=== PATIENT | male | born 1955 | race Caucasian/White ===

== ENCOUNTER 2018-01-17 13:00 | Inpatient (IN) | payer MEDICARE ==
[2018-01-17 16:27] VITALS: BMI 29.7
[2018-01-25] MEDS ORDERED: CEFAZOLIN/Water 2 GM/20 ML SYRINGE ONE (11:18)
[2018-01-25] MEDS ORDERED: Bupivacaine HCl 0.5%/Epinephrine 1:200,000/PF 30 ml Vial ONE (12:11)
[2018-01-25] MEDS ORDERED: Thrombin 5000 UNITS/5 ML VIAL ONE (12:11)
[2018-01-25] MEDS ORDERED: Bacitracin Zinc Ointment 30 gm TUBE ONE (12:11)
[2018-01-25] MEDS ORDERED: Sodium Chloride 0.9% 10 ML ONE (12:11)
[2018-01-25] MEDS ORDERED: Phenylephrine HCL 10 MG/ML VIAL ONE (12:21)
[2018-01-25] MEDS ORDERED: Nitroglycerin 50 MG/250 ML BOT 0 ML ONE (12:21)
[2018-01-25] MEDS ORDERED: Albumin 5% 0 ML ONE (12:21)
[2018-01-25] MEDS ORDERED: Fentanyl 250 MCG/5 ML VIAL ONE (12:24)
[2018-01-25] MEDS ORDERED: Acetaminophen/Codeine 30-300mg Tablet PO PRN ×2 (12:56)
[2018-01-25] MEDS ORDERED: Acetaminophen 325 MG TAB PO PRN (12:56)
[2018-01-25] MEDS ORDERED: traMADol HCl 50 MG TAB PO PRN (12:56)
[2018-01-25] MEDS ORDERED: Ondansetron HCl/PF 4 MG/2 ML Vial IVP PRN (12:56)
[2018-01-25] MEDS ORDERED: Promethazine HCl 25 MG/ML VIAL IM PRN (12:56)
[2018-01-25] MEDS ORDERED: tiZANidine HCl 4 MG TAB PO PRN (12:56)
[2018-01-25] MEDS ORDERED: Promethazine HCl 12.5 MG SUPP PR PRN (12:56)
[2018-01-25] MEDS ORDERED: Promethazine 25 MG TAB PO PRN (12:56)
[2018-01-25] MEDS ORDERED: Bisacodyl 10 MG SUPP PR PRN (12:56)
[2018-01-25] MEDS ORDERED: Morphine 2 MG/ML SYRINGE SLOW IVP PRN (12:56)
--- NOTE | 2018-01-25 15:40 | HP ---
DATE OF ADMISSION: 01/25/2018 REASON FOR ADMISSION: Lumbar stenosis. HISTORY OF PRESENT ILLNESS: Mr. Ledbetter is a 62-year-old gentleman referred to us by Dr. Sykes for jannette luation of left low back and radiating leg pain and some right lower extremity symptoms as well. The se are worse with standing and for relief he has to sit down or bend forward. He has been evaluated with MR imaging in our office showing lateral recess stenosis at L3-L4 and L4-L5. There is foraminal disease as well. He has been to our colleagues in pain management and physical therapy and although those interventions are provided temporary relief. The pain is worsening over time rather than gett ing better. For this reason, he was brought to the hospital today for decompressive laminectomy, med ial facetectomy, and foraminotomy. PAST MEDICAL HISTORY: Diabetes mellitus, end-stage renal disease, hypertension. PAST SURGICAL HISTORY: Kidney transplant in 2012. MEDICATIONS: Pantoprazole, prednisone, Lantus insulin, tacrolimus, sodium bicarbonate, ezetimibe, ca lcitriol, Plavix (held), amlodipine, baby aspirin (held), pravastatin, Uloric, and furosemide. ALLERGIES: No known drug allergies. SOCIAL HISTORY: Mr. Ledbetter continues to smoke, unfortunate a pack per day. He is retired. He is mar ried, has two children. FAMILY HISTORY: Noncontributory. REVIEW OF SYSTEMS: Other symptoms are negative in our 10-point review of symptoms. PHYSICAL EXAMINATION: GENERAL: Mr. Ledbetter is a 62-year-old gentleman in no acute distress. NEUROLOGIC: Examination cranial nerves are all intact. Cerebellar exam does not show any deficits i n alternating rapid motions or truncal ataxia. His motor exam does not reveal any significant weakne ss. Specifically, the strength is normal in the iliopsoas, quadriceps, hamstrings, anterior tibia, E HL, and gastrocnemius. Sensory exam shows mild deficits in left L4-L5 dermatomes. Reflexes are hypo active throughout. There is no clonus. IMAGING: Findings are reviewed imaging as above. Flexion, extension views do not show significant t ranslational instability in the lumbar spine. IMPRESSION: Lumbar stenosis, refractory to nonsurgical therapy. INFORMED CONSENT: I discussed in the office the indications, risks, benefits, alternatives, and expe cted outcomes from surgery. We discussed risks such as bleeding, infection, CSF leak, nerve root dam age, weakness, paralysis, incontinence, wheelchair dependence, cardiopulmonary complications of anest hesia, major blood vessel injury and . He understands all the risks and wants to proceed. We will go to the operating room now.
--- NOTE | 2018-01-25 15:47 | OP ---
DATE OF SURGERY: 01/25/2018 SURGEON: Abisai Babin M.D. COOK CHEF: None. PREOPERATIVE INDICATION: Treat pain and prevent neurological deterioration. PREOPERATIVE DIAGNOSES: Lumbar stenosis with neurogenic claudication, left worse than right. POSTOPERATIVE DIAGNOSES: Lumbar stenosis with neurogenic claudication, left worse than right. OPERATIVE PROCEDURE: Decompressive laminectomy, medial facetectomy, foraminotomy at L3-L4 and L4-L5. PREOPERATIVE MEDICATION: Ancef 2 grams IV. DRAIN NUMBER: Zero. DRAIN TYPE: None. OPERATIVE DICTATION: The patient was brought to the operating room. General endotracheal anesthesia was induced. The patient was carefully positioned prone on the operating table with his chest and h ips supported by gel-filled chest rolls. A lateral fluoro radiograph was used to plan our incision. The lumbar skin was sterilely prepped and draped. We opened with a 10 blade knife and controlled bl eeding with bipolar and monopolar cautery. We used monopolar cautery to dissect through subcutaneous tissues to the thoracodorsal fascia. We incised the fascia in the midline and reflected the paraspi nal muscles off the spinous process and lamina of L3, L4, and L5. A lateral fluoro radiograph confir med the level upon which we were operating. We then used an Adson rongeur to remove the spinous proc ess of L3, L4, and the top of L5. Using Kerrison rongeurs, we fashioned a laminectomy from L3-L5. W e widened our laminectomy defect until we were even with the pedicles at L4 and L5. We performed for aminotomies over the exiting L3, L4, and L5 nerve roots. We undermined the lateral recesses with Ker rison rongeurs and at the completion of our decompression, a Casanova ball probe could pass out the oli ral foramen with the L3, L4, and L5 nerve roots without impingement. The lateral recesses were well decompressed. We irrigated copiously with bacitracin irrigation. We waxed the bone edges. We bipol ared the muscle. Hemostasis was quite good. We irrigated once more with bacitracin irrigation. We infused local anesthetic in the paraspinal muscles. We applied vancomycin powder in the wound. We c losed the wound in anatomic layers. We applied a sterile dressing. This was a clean case and no con tamination.
[2018-01-25] MEDS ORDERED: Propofol 200 MG/20 ML VIAL ONE (15:50)
[2018-01-25] MEDS ORDERED: Glycopyrrolate 0.2 MG/ML 5 ML SYRINGE ONE (15:50)
[2018-01-25] MEDS ORDERED: Lidocaine 1% PF 5 ML VIAL ONE (15:50)
[2018-01-25] MEDS ORDERED: Ondansetron HCl/PF 4 MG/2 ML Vial ONE (15:50)
[2018-01-25] MEDS ORDERED: PHENYLEPHRINE-NS 100 MCG/ML 10 ML SYRINGE ONE (15:50)
[2018-01-25] MEDS: CEFAZOLIN/Water 2 GM/20 ML SYRINGE SLOW IVP SCH (20:27)
[2018-01-25] MEDS: Carvedilol 6.25 MG TAB PO SCH (20:41)
[2018-01-25] MEDS: Tacrolimus 1 MG CAP PO SCH (20:42)
--- NOTE | 2018-01-25 20:44 | PDOC.PN ---
- Subjective Encounter Start Date: 01/25/18 Encounter Start Time: 20:41 Subjective: pt up in bed no complains -: spoke with pt had recent prograft level done normal limits -: pt was told to bring his home meds in. Asked pt to verify asked pt to verify for documentation purpose. pt does not want to do that. He states " i know what i packed". Explained to pt that we want to make sure all medication are documented. pt states that he did leave out asa and plavix and he will take his home meds including insulin. - Objective Vital Signs & Weight: Vital Signs (12 hours) Temp Pulse Resp BP Pulse Ox 01/25/18 19:50 97.5 F L 66 20 144/74 H 91 L Weight Weight 207 lb Phys Exam - Physical Examination HEENT: PERRLA Neck: no nodes, no JVD Respiratory: no wheezing, no rales Cardiovascular: RRR, no significant murmur Gastrointestinal: soft, non-tender Musculoskeletal: no edema Neurological: non-focal, normal sensation, moves all 4 limbs (dressing to lumbar intact) Lymphatic: no nodes Psychiatric: normal affect, A&O x 3 Skin: no rash Dx/Plan (1) Renal transplant disorder Code(s): T86.10 - UNSPECIFIED COMPLICATION OF KIDNEY TRANSPLANT Status: Acute Comment: pt on prograft and prednisone, pt will take his home meds. (2) Diabetes mellitus Code(s): E11.9 - TYPE 2 DIABETES MELLITUS WITHOUT COMPLICATIONS Status: Acute Qualifiers: Diabetes mellitus type: type 2 Diabetes mellitus complication status: with kidney complications Comment: pt to take his insulin. He does not want to take hospital insulin. will make sure he takes a snack. - Plan * . Review of Systems - Review of Systems ENT: negative: Ear Pain, Ear Discharge, Nose Pain, Nose Discharge, Nose Congestion, Mouth Pain, Mouth Swelling, Throat Pain, Throat Swelling, Other Respiratory: negative: Cough, Dry, Shortness of Breath, Hemoptysis, SOB with Excertion, Pleuritic Pain, Sputum, Wheezing Cardiovascular: negative: chest pain, palpitations, orthopnea, paroxysmal nocturnal dyspnea, edema, light headedness, other Gastrointestinal: negative: Nausea, Vomiting, Abdominal Pain, Diarrhea, Constipation, Melena, Hematochezia, Other Genitourinary: negative: Dysuria, Frequency, Incontinence, Hematuria, Retention , Other Skin: negative: Rash, Lesions, Joesph, Bruising, Other - Medications/Allergies Allergies/Adverse Reactions: Allergies Allergy/AdvReac Type Severity Reaction Status Date / Time No Known Allergies Allergy Unverified 01/17/18 16:27 Medications: Current Medications Acetaminophen (Tylenol) 650 mg PO Q4H PRN PRN Reason: Headache/Fever or Pain Acetaminophen/Codeine Phosphate (Tylenol #3) 1 tab PO Q3H PRN PRN Reason: Mild Pain (1-3) Acetaminophen/Codeine Phosphate (Tylenol #3) 2 tab PO Q3H PRN PRN Reason: Moderate Pain (4-6) Amlodipine Besylate (Norvasc) 5 mg PO DAILY [facility] Atorvastatin Calcium (Lipitor) 10 mg PO DAILY [facility] Bisacodyl (Dulcolax) 10 mg ND Q12H PRN PRN Reason: Constipation Carvedilol (Coreg) 12.5 mg PO BID [facility] Last Admin: 01/25/18 20:41 Dose: Not Given Cefazolin Sodium (Ancef) 2 gm SLOW IVP 0300,1900 [facility] Stop: 01/26/18 03:01 Last Admin: 01/25/18 20:27 Dose: 2 gm Ezetimibe (Zetia) 10 mg PO HS [facility] Last Admin: 01/25/18 20:42 Dose: Not Given Furosemide (Lasix) 40 mg PO DAILY [facility] Insulin Detemir 45 units/ (Miscellaneous Medication) 0.45 mls @ 0 mls/hr SC HS [facility] PRN Reason: As Directed Last Admin: 01/25/18 20:42 Dose: Not Given Morphine Sulfate (Morphine) 2 mg SLOW IVP Q1H PRN PRN Reason: Moderate Breakthrough Pain Non-Formulary Medication (Calcitriol [Calcitriol]) 0.5 cap PO DAILY [facility] Non-Formulary Medication (Sodium Bicarbonate [Sodium Bicarbonate]) 5 tab PO BID [facility] Ondansetron HCl (Zofran) 4 mg IVP DAILY PRN PRN Reason: Nausea/Vomiting Pantoprazole Sodium (Protonix) 40 mg PO DAILY [facility] (Febuxostat [Uloric] (40 Mg) Hm Med) 0 each PO DAILY [facility] Prednisone (Prednisone) 5 mg PO DAILY [facility] Promethazine HCl (Phenergan) 12.5 mg PO Q4H PRN PRN Reason: Nausea/Vomiting Promethazine HCl (Phenergan) 12.5 mg IM Q4H PRN PRN Reason: Nausea/Vomiting Promethazine HCl (Phenergan Suppository) 12.5 mg ND Q4H PRN PRN Reason: Nausea/Vomiting Sodium Chloride (Flush - Normal Saline) 10 ml IVF PRN PRN PRN Reason: Saline Flush Tacrolimus (Prograf) 1 mg PO BID [facility] Last Admin: 01/25/18 20:42 Dose: Not Given Tizanidine HCl (Zanaflex) 4 mg PO Q6H PRN PRN Reason: Muscle Spasm Tramadol HCl (Ultram) 50 mg PO Q6H PRN PRN Reason: Mild Pain (1-3)
[2018-01-25] MEDS ORDERED: Insulin Detemir 100 UNITS/ML 45 UNITS in Pre-Filled Syringe 1 EACH SC SCH (21:00)
[2018-01-25] MEDS ORDERED: INSULIN GLARGINE HUM REC ANLOG 45 UNIT SQ SCH (21:00)
[2018-01-25] MEDS ORDERED: Ezetimibe 10 MG TAB PO SCH (21:00)
[2018-01-26 04:02] VITALS: TEMP 98.5
[2018-01-26] MEDS: CEFAZOLIN/Water 2 GM/20 ML SYRINGE SLOW IVP SCH (04:19)
[2018-01-26] MEDS ORDERED: Dextrose 50% Abboject 50 ML SYRINGE ONE (04:39)
[2018-01-26 04:50] LABS: Anion Gap 10 mmol/L (10-20); BUN (Urea Nitrogen) 43 mg/dL (8.4-25.7); Calc. Creatinine Clearance 41 mL/min (70-130); Calcium 9.9 mg/dL (7.8-10.44); Carbon Dioxide 27 mmol/L (23-31); Chloride 110 mmol/L (98-107); Estimated GFR-MDRD 26; Potassium 3.7 mmol/L (3.5-5.1); Sodium 143 mmol/L (136-145)
[2018-01-26 04:56] LABS: Glucose 21 mg/dL (80-115)
[2018-01-26 05:23] LABS: Hemoglobin 15.3 g/dL (14.0-18.0); Mean Corpuscular HGB CONC 33.6 g/dL (32.0-36.0); Mean Corpuscular Hemoglobin 33.3 pg (27.0-31.0); Mean Corpuscular Volume 99.2 fl (80.0-94.0); Mean Platelet Volume 7.9 fL (7.4-10.4); Platelet Count 180 thou/uL (130-400); RBC Distribution Width 13.4 % (11.5-14.5); Red Blood Cell (RBC) Count 4.58 mill/uL (4.70-6.10); White Blood Cell (WBC) Count 11.7 thou/uL (4.8-10.8)
[2018-01-26] MEDS ORDERED: Dextrose 50% Abboject 50 ML SYRINGE SLOW IVP SCH (05:30)
[2018-01-26 06:14] LABS: Band 2 % (5-11); Eosinophils 1 % (0-10); Lymphocytes 16 % (21-51); Metamyelocyte 1 % (0-0); Monocytes 7 % (0-10); Neutrophil 70 % (42-75); Nucleated RBC 1 % (0); PLT Morphology Comment Appears Adequate; Reactive Lymphocytes 2 % (0-10)
[2018-01-26 06:20] LABS: MDiff Complete? YES
--- NOTE | 2018-01-26 06:54 | PRG ---
DATE OF SERVICE: 01/26/2018 I saw Mr. Ledbetter this morning. His blood sugar was terribly low this morning at 35, but was corrected with help with the medical team. I am appreciative of the Hospitalist Service on this patient. Mr. Ledbetter tells me that he does not have pain running down his legs this morning. His back is sore from surgery. He is pleased with the results of the operation thus far. Mr. Ledbetter went for a walk already around the nurses' station and all the way down the [place]. If he is safe for his activities of daily living he can be discharged today. I carefully went over wound car e and home going activity restrictions and followup arrangements. We will see him in the office in a bout 2 weeks.
--- NOTE | 2018-01-26 07:21 | DIS ---
DATE OF ADMISSION: 01/25/2018 DATE OF DISCHARGE: 01/26/2018 ADMISSION DIAGNOSES: Neurogenic claudication, left greater than right. DISCHARGE DIAGNOSES: Neurogenic claudication, left greater than right; however, the neurogenic neeta ication has improved. The patient has been able to ambulate farther than he has in the past year. DISCHARGE CONDITION: The patient is stable. He is able to tolerate regular diet. His pain is well controlled with pain medication. His incision is clean, dry, and intact with vertical mattress sutur es. DISCHARGE CONDITION: The patient is stable. CONSULTATIONS: None. PROCEDURES: Decompressive laminectomy, medial facetectomy, and foraminotomy at L3-L5. All images were taken intraoperatively. BRIEF HISTORY AND PHYSICAL: Mr. Ledbetter is a 62-year-old male who presents with right lower extremity symptoms. He has lateral recess stenosis at L3-L5 and foraminal disease as well. The patient was un able to have permanent relief with pain management and physical therapy so he opted for neurosurgical intervention to help with his leg pain. HOSPITAL COURSE: Overnight, Mr. Ledbetter did well. He has ambulated farther than he has over the past year while in the hospital. His incision is clean, dry, and intact with vertical mattress sutures. He has been able to urinate and tolerate a regular diet. His pain is well controlled with pain medic ation. There are no acute events in the hospital overnight. DISCHARGE PHYSICAL EXAMINATION: HEENT: Normocephalic, atraumatic. Hearing intact. Moist mucous membranes. Trachea is midline. Ey es; pupils are equal and reactive to light. Extraocular muscles are intact. Sclerae is white, nonic teric. CARDIOVASCULAR: The patient has regular rate and rhythm, normal S1, S2 heart sounds, no distal cyano sis or clubbing noted. RESPIRATORY: The patient has bilateral symmetric chest rise. Appears to have no shortness of breath . CARDIOVASCULAR: Lower extremities, the patient has 5/5 strength bilateral lower extremities, no dist al cyanosis or clubbing noted. NEUROLOGIC: Cranial nerves II-XII are grossly intact. Speech is fluent, he answers my questions aviva ropriately. ACTIVITY: The patient can have regular activity on discharge with the exception of avoid lifting mor e than 15 pounds, pushing or pulling 15 pounds. Avoid bending at the waist. DIET: Patient to have a regular diet upon discharge. HOME MEDICATIONS: Taking pantoprazole, prednisone, Lantus insulin, tacrolimus, sodium bicarbonate, e zetimibe, Calcitriol, Plavix for 4 weeks. Amlodipine, baby aspirin, pravastatin, Uloric and furosemi de. DIET: The patient can have a renal protein low diet. With any further questions, please feel free to contact Neurosurgery.
[2018-01-26 08:36] VITALS: BP 90/49
[2018-01-26] MEDS ORDERED: Sodium Bicarbonate Tab 325 MG TAB PO SCH (09:00)
[2018-01-26] MEDS ORDERED: Atorvastatin Calcium 10 MG TAB PO SCH (09:00)
[2018-01-26] MEDS ORDERED: Calcitriol 0.25 MCG CAP PO SCH (09:00)
[2018-01-26] MEDS ORDERED: predniSONE 5 MG TAB PO SCH (09:00)
[2018-01-26] MEDS ORDERED: FEBUXOSTAT 40 MG PO SCH (09:00)
[2018-01-26] MEDS ORDERED: Amlodipine 5 MG TAB PO SCH (09:00)
[2018-01-26] MEDS ORDERED: Furosemide 40 MG TAB PO SCH (09:00)
[2018-01-26] MEDS: Carvedilol 6.25 MG TAB PO SCH (09:28)
[2018-01-26] MEDS: Tacrolimus 1 MG CAP PO SCH (09:28)
== END 2018-01-26 11:35 | disposition home or self-care (01) | DRG 516 ==
LOC: SURG A 01-25 10:31
PROVIDERS: ADMIT Neurological Surgery; ATTEND Neurological Surgery
PROC: 01NB0ZZ Release Lumbar Nerve, Open Approach (ICD-10-PCS; principal; 2018-01-25)
DX: M48.062 Spinal stenosis, lumbar region with neurogenic claudication (principal); I12.0 Hypertensive chronic kidney disease with stage 5 chronic kidney disease or end stage renal disease; E11.22 Type 2 diabetes mellitus with diabetic chronic kidney disease; Z94.0 Kidney transplant status; N18.5 Chronic kidney disease, stage 5; Z79.4 Long term (current) use of insulin; F17.210 Nicotine dependence, cigarettes, uncomplicated; Z79.52 Long term (current) use of systemic steroids; Z79.899 Other long term (current) drug therapy; Z86.73 Personal history of transient ischemic attack (TIA), and cerebral infarction without residual deficits; I25.10 Atherosclerotic heart disease of native coronary artery without angina pectoris; E78.2 Mixed hyperlipidemia; M10.9 Gout, unspecified; I25.2 Old myocardial infarction
CPT/HCPCS: 36415; 36416; 76001; 80048; 85007; 85027; A4216; J0131; J0670; J1815; J2001; J2370; J2405; J2704; J3010; J3370; J3490; J7507; P9045

== ENCOUNTER 2018-01-17 13:16 | Outpatient (CLI) | payer MEDICARE ==
[2018-01-17 15:27] LABS: Hemoglobin 16.3 g/dL (14.0-18.0); Mean Corpuscular HGB CONC 34.1 g/dL (32.0-36.0); Mean Corpuscular Hemoglobin 32.9 pg (27.0-31.0); Mean Corpuscular Volume 96.5 fl (80.0-94.0); Mean Platelet Volume 7.8 fL (7.4-10.4); Platelet Count 177 thou/uL (130-400); RBC Distribution Width 13.4 % (11.5-14.5); Red Blood Cell (RBC) Count 4.97 mill/uL (4.70-6.10); White Blood Cell (WBC) Count 7.8 thou/uL (4.8-10.8)
[2018-01-17 15:35] LABS: INR-International Normal Ratio 0.9; PTT 27.7 SEC (22.9-36.1); Prothrombin Time 12.7 SEC (12.0-14.7)
[2018-01-17 15:52] LABS: Anion Gap 15 mmol/L (10-20); BUN (Urea Nitrogen) 51 mg/dL (8.4-25.7); Calc. Creatinine Clearance 0 mL/min (70-130); Calcium 10.3 mg/dL (7.8-10.44); Carbon Dioxide 25 mmol/L (23-31); Chloride 107 mmol/L (98-107); Estimated GFR-MDRD 23; Glucose 112 mg/dL (80-115); Sodium 143 mmol/L (136-145)
--- NOTE | 2018-01-17 19:10 | EKG ---
Test Reason : Blood Pressure : / mmHG Vent. Rate : 062 BPM Atrial Rate : 062 BPM P-R Int : 136 ms QRS Dur : 084 ms QT Int : 402 ms P-R-T Axes : 041 113 019 degrees QTc Int : 408 ms Normal sinus rhythm Left posterior fascicular block Abnormal ECG No previous ECGs available Confirmed by DR. Annemarie BIRMINGHAM ([id number]) on 01/17/2018 7:10:21 PM Referred By: JAROD Confirmed By:DR. Annemarie BIRMINGHAM
== END 2018-01-17 13:17 | disposition home or self-care (01) ==
LOC: LABBT 13:16
PROVIDERS: ATTEND Neurological Surgery
DX: Z01.812 Encounter for preprocedural laboratory examination (principal); M48.061 Spinal stenosis, lumbar region without neurogenic claudication
CPT/HCPCS: 80048; 85027; 85610; 85730; 93005; 93010